=== PATIENT | male | born 1975 | race African-American/Black ===

== ENCOUNTER 2021-08-09 09:03 | Emergency (ER) | payer SELFPAY ==
[2021-08-09] MEDS ORDERED: Orphenadrine 60 MG/2 ML Inj IM ONE (10:30)
[2021-08-09] MEDS ORDERED: Ketorolac 60 MG/2 ML SDV IM ONE (10:30)
== END 2021-08-09 12:34 | disposition home or self-care (01) ==
LOC: MW.ED 09:03
DX: S39.012A Strain of muscle, fascia and tendon of lower back, initial encounter (principal); X50.0XXA Overexertion from strenuous movement or load, initial encounter
CPT/HCPCS: 96372; 99283; J1885; J2360